=== PATIENT | female | born 1955 | race Hispanic/Latino ===

== ENCOUNTER 2022-12-20 01:24 | Inpatient (IN) | payer SELFPAY ==
[2022-12-20 01:58] LABS: #Eosinphils 0.1 thou/uL (0.0-0.7); #Monocytes 0.5 thou/uL (0.11-0.59); %Basophils 0.6 % (0.0-1.0); %Eosinophils 0.9 % (0.0-10.0); %Lymphocytes 16.6 % (21.0-51.0); %Monocytes 7.4 % (0.0-10.0); %Neutrophils 74.1 % (42.0-75.0); Hematocrit 33.1 % (36.0-47.0); Hemoglobin 10.5 g/dL (12.0-16.0); Mean Corpuscular HGB CONC 31.7 g/dL (32.0-36.0); Mean Corpuscular Hemoglobin 29.6 pg (27.0-31.0); Mean Corpuscular Volume 93.2 fl (78.0-98.0); Platelet Count 150 10x3/uL (130-400); Red Blood Cell (RBC) Count 3.55 mill/uL (4.20-5.40); White Blood Cell (WBC) Count 6.7 10x3/uL (4.8-10.8)
[2022-12-20 02:25] LABS: ALT (SGPT) 23 U/L (8-55); AST (SGOT) 34 U/L (5-34); Albumin 4.6 g/dL (3.4-4.8); Alkaline Phosphatase 102 U/L (40-110); Anion Gap 16 mmol/L (10-20); BUN (Urea Nitrogen) 27 mg/dL (9.8-20.1); Bilirubin, Total 0.4 mg/dL (0.2-1.2); Calc. Creatinine Clearance 0 mL/min (70-130); Calcium 9.1 mg/dL (7.8-10.44); Carbon Dioxide 20 mmol/L (23-31); Chloride 107 mmol/L (98-107); Estimated GFR 35; Globulin 3.3 g/dL (2.4-3.5); Glucose 110 mg/dL (80-115); Lipase 48 U/L (8-78); Potassium 4.2 mmol/L (3.5-5.1); Protein, Total 7.9 g/dL (5.8-8.1); Sodium 139 mmol/L (136-145)
[2022-12-20] MEDS ORDERED: Morphine 4 MG/ML VIAL ONE (04:34)
[2022-12-20] MEDS ORDERED: Ondansetron PF 4 MG/2 ML Vial ONE ×2 (04:35→09:32)
[2022-12-20] MEDS ORDERED: Pantoprazole 40 MG VIAL ONE (04:35)
[2022-12-20 05:27] LABS: Troponin I 0.044 ng/mL (< 0.028)
[2022-12-20 05:32] LABS: Bacteria/HPF Rare-Few HPF (None Seen); Bilirubin Negative (Negative); Blood, Urine Trace (Negative); CAUTI Indications for Culture Pelvic or flank pain; Clarity Clear (Clear); Glucose, Urine (Dipstick) Normal (Negative); Ketone, Urine Negative (Negative); Leukocyte Negative Leu/uL (Negative); Nitrite Negative (Negative); Protein, Urine (Dipstick) 30 mg/dL (Neg-Trace); RBC/HPF 0-3 HPF (0-3); Specific Gravity, Urine 1.018 (1.002-1.036); Squamous Epithelial 0-3 HPF (0-3); Urobilinogen Normal mg/dL (Less than 2); WBC/HPF 0-3 HPF (0-3); pH, Urine 5.5 (5.0-9.0)
[2022-12-20 05:33] LABS: Urine Culture Reflex No No
[2022-12-20] MEDS ORDERED: LevoFLOXacin 750 mg/D5W 150 ml Premix Bag ONE (06:21)
[2022-12-20] MEDS ORDERED: EPINEPHrine 1 MG/ML AMP ONE (07:15)
[2022-12-20] MEDS ORDERED: Bupivacaine PF 0.5% 30 ML VIAL ONE (07:15)
[2022-12-20 07:18] LABS: INR-International Normal Ratio 1.3; Prothrombin Time 16.4 sec (12.0-14.7)
[2022-12-20 07:19] LABS: PTT 32.3 sec (22.9-36.1)
[2022-12-20 09:16] VITALS: BP 183/104; TEMP 98.1
[2022-12-20 09:17] VITALS: BMI 28.7
[2022-12-20] MEDS ORDERED: SUGAMMADEX SODIUM 200 MG/2 ML VIAL ONE (09:35)
[2022-12-20] MEDS ORDERED: fentaNYL PF 100 MCG/2 ML SYRINGE ONE (09:35)
[2022-12-20] MEDS ORDERED: Nitroglycerin 2% Ointment 1 INCH/1 GM Packet ONE (10:07)
[2022-12-20] MEDS ORDERED: Ondansetron ODT 4 MG TAB PO PRN (10:41)
[2022-12-20] MEDS ORDERED: traMADol HCl 50 MG TAB PO PRN (10:41)
[2022-12-20] MEDS ORDERED: Ondansetron PF 4 MG/2 ML Vial IVP PRN (10:41)
[2022-12-20] MEDS ORDERED: Morphine 2 MG/ML VIAL SLOW IVP PRN (10:41)
[2022-12-20] MEDS ORDERED: hydrALAZINE 20 MG/ML VIAL SLOW IVP PRN (10:41)
[2022-12-20] MEDS ORDERED: LevoFLOXacin 500 mg/D5W 500 MG in Premix 1 BAG IVPB SCH (11:00)
[2022-12-20] MEDS ORDERED: Sodium Chloride 0.45% 1,000 ML IV SCH (11:00)
[2022-12-20 12:01] LABS: Troponin I 0.047 ng/mL (< 0.028)
[2022-12-20] MEDS ORDERED: Piperacillin/Tazobactam 3.375 GM in Sodium Chloride 0.9% 100 ML IVPB SCH ×2 (13:00→18:00)
[2022-12-20] MEDS ORDERED: TETANUS, DIPHTHERIA TOX,ADULT (TDVAX) 0.5 ML VIAL IM ONE (14:00)
[2022-12-20] MEDS ORDERED: Ketorolac Tromethamine 30 MG/ML VIAL ONE (14:10)
[2022-12-21] MEDS ORDERED: Spironolactone 25 MG TAB PO SCH (08:00)
[2022-12-21] MEDS ORDERED: Amiodarone 200 MG TAB PO SCH (09:00)
[2022-12-21] MEDS ORDERED: Losartan 25 MG TAB PO SCH (09:00)
== END 2022-12-20 14:54 | disposition home or self-care (01) | DRG 445 ==
LOC: ERS 01:24 → ERHOLD 06:30 → SURG A 08:03 → OBSVTOIN 10:41
PROVIDERS: ADMIT Specialist; ATTEND Specialist
DX: K80.00 Calculus of gallbladder with acute cholecystitis without obstruction (principal); L97.329 Non-pressure chronic ulcer of left ankle with unspecified severity; I49.5 Sick sinus syndrome; E78.5 Hyperlipidemia, unspecified; N18.9 Chronic kidney disease, unspecified; Z53.8 Procedure and treatment not carried out for other reasons; I48.91 Unspecified atrial fibrillation; E66.9 Obesity, unspecified; R07.89 Other chest pain; I50.810 Right heart failure, unspecified; I27.20 Pulmonary hypertension, unspecified; Z68.28 Body mass index [BMI] 28.0-28.9, adult; Z98.51 Tubal ligation status; Z95.0 Presence of cardiac pacemaker; Z98.890 Other specified postprocedural states; I08.1 Rheumatic disorders of both mitral and tricuspid valves; I83.023 Varicose veins of left lower extremity with ulcer of ankle
CPT/HCPCS: 36415; 71045; 71046; 76705; 80053; 81001; 83690; 83880; 84484; 85025; 85610; 85730; 93005; 93306; 96361; 96365; 96375; C9113; J0171; J1885; J1956; J2270; J2405; S0020